=== PATIENT | male | born 1945 | race Caucasian/White ===

== ENCOUNTER → 2016-12-01 | Outpatient (CLI) | payer MEDICARE, OTHER ==
[~2016-12-01] MED LIST: ASPIRIN81 MG PO; CEROVITE ADVANC1 TAB PO; DIOVAN HCT 1601 EACH PO; FISH OIL1 GM PO; LIPITOR80 MG PO; NEXIUM40 MG PO; NORCO 325-5 MG1 TAB PO; REQUIP0.25 MG PO; VITAMIN D31000 UNI1 PO; VITAMIN E400 UNI3 PO; ZETIA10 MG PO
== END | disposition short-term general hospital (02) ==
LOC: CLNEUR 08:40
DX: Z48.89 Encounter for other specified surgical aftercare (principal)

== ENCOUNTER 2017-01-10 20:57 | Observation (INO) | payer MEDICARE, OTHER ==
[~2017-01-10] VITALS: Ht 180.3 cm; Wt 132.4 kg
[2017-01-10] MEDS ORDERED: NEXIUM40 MG PO (23:16)
[2017-01-10] MEDS ORDERED: LIPITOR80 MG PO (23:16)
[2017-01-10] MEDS ORDERED: DIOVAN HCT 1601 EACH PO (23:18)
[2017-01-10] MEDS ORDERED: ASPIRIN81 MG PO (23:18)
[2017-01-10] MEDS ORDERED: REQUIP0.25 MG PO (23:19)
[2017-01-10] MEDS ORDERED: ZETIA10 MG PO (23:20)
[2017-01-10] MEDS ORDERED: CEROVITE ADVANC1 TAB PO (23:21)
[2017-01-10] MEDS ORDERED: VITAMIN E400 UNI3 PO (23:22)
[2017-01-10] MEDS ORDERED: VITAMIN D31000 UNI1 PO (23:24)
[2017-01-10] MEDS ORDERED: FISH OIL1 GM PO (23:24)
[2017-01-10] MEDS ORDERED: NORCO 325-5 MG1 TAB PO ×2 (23:31→23:35)
== END 2017-01-12 16:04 ==
LOC: ER 20:57 → OBS 23:05 → IP 23:05
PROVIDERS: ADMIT Family Medicine
DX: M79.1 Myalgia (principal); M79.604 Pain in right leg; Z87.891 Personal history of nicotine dependence; Z79.1 Long term (current) use of non-steroidal anti-inflammatories (NSAID); Z79.891 Long term (current) use of opiate analgesic
CPT/HCPCS: G0378; J1650; J1885; J2270; J2405; J2930; J3360; J8499

== ENCOUNTER → 2017-01-26 | Outpatient (CLI) | payer MEDICARE, OTHER | END | disposition short-term general hospital (02) | LOC: CLNEUR 09:06 | DX: I82.401 Acute embolism and thrombosis of unspecified deep veins of right lower extremity (principal); M79.604 Pain in right leg; M79.89 Other specified soft tissue disorders; I82.811 Embolism and thrombosis of superficial veins of right lower extremity; Z98.890 Other specified postprocedural states ==

== ENCOUNTER → 2017-03-09 | Outpatient (CLI) | payer MEDICARE, OTHER | END | disposition short-term general hospital (02) | LOC: CLNEUR 09:23 | DX: Z47.89 Encounter for other orthopedic aftercare (principal); M43.16 Spondylolisthesis, lumbar region; Z98.1 Arthrodesis status ==